=== PATIENT | female | born 1995 | race Caucasian/White ===

== ENCOUNTER → 2025-06-02 | Outpatient (CLI) | payer MEDICAID, SELFPAY ==
[2025-06-02 14:31] LABS: HCG Qualitative,Urine Negative
--- NOTE | 2025-06-02 16:45 | XR_ITS ---
Examination: MRI lumbar spine, without intravenous contrast. MRI lumbar spine, with intravenous contrast. Exam date and time: June 02, 2025, 7017 hours INDICATIONS: Low back pain radiating down the right leg 1 year Technique: Multiple axial, sagittal and coronal images of the lumbar spine have been obtained with the Siemens high-resolution 1.5 [employer] MRI scanner. Images obtained included T2 weighted fat suppressed sagittal sections, TR 3500, TE 46, T2 weighted coronal fat suppressed images, TR 3050, TE 84, T2-weighted transverse fat suppressed images, TR 30-60, TE 63, proton density transverse images, TR 4720, TE 46, and T1 weighted coronal images, TR 560, TE 13. Axial, sagittal and coronal images are obtained post intravenous injection 16 cc gadolinium. Findings: Satisfactory alignment lumbar vertebral bodies on the lateral view Mild disc narrowing L4-L5 moderate disc narrowing L5-S1 Disc desiccation L4-L5 Postcontrast images demonstrate no abnormal osseous epidural conus medullaris or cauda equina enhancement L5-S1 2 mm central lumbar disc bulge L4-L5 3 mm central lumbar disc bulge L3-L4 no disc protrusion L2-L3 no disc protrusion L1-L2 no disc protrusion IMPRESSION: L5-S1 2 mm central lumbar disc bulge L4-L5 3 mm central lumbar disc bulge
== END | disposition home or self-care (01) ==
LOC: SMRI 14:13
PROVIDERS: PCP Family Medicine; Referring Provider Family Medicine; Visit Provider Family Medicine
DX: M51.370 Other intervertebral disc degeneration, lumbosacral region with discogenic back pain only (principal); M51.360 Other intervertebral disc degeneration, lumbar region with discogenic back pain only; Z32.00 Encounter for pregnancy test, result unknown
CPT/HCPCS: 72158; 81025; A9577